=== PATIENT | male | born 2005 | race Caucasian/White ===

== ENCOUNTER 2023-02-20 23:16 | Emergency (ER) | payer OTHER, SELFPAY ==
[2023-02-20] VITALS (7 sets, daily range): BP systolic 121–157; BP diastolic 82–90; PULSE 92–181; RESP 12–18; TEMP 36.6; O2SAT 99–100; BMI 19.6
--- NOTE | 2023-02-20 23:42 | EKG12_ITS ---
Test Reason : tachycardia Blood Pressure : / mmHG Vent. Rate : 148 BPM Atrial Rate : 000 BPM P-R Int : 000 ms QRS Dur : 096 ms QT Int : 286 ms P-R-T Axes : 000 082 015 degrees QTc Int : 449 ms Critical Test Result: High HR Supraventricular tachycardia Incomplete right bundle branch block Borderline ECG Confirmed by MILES GAYLE, ANNA ([id number]), business editor FANNY TUBBS ([id number]) on 02/22/2023 10:53:53 AM Referred By: Tricia Confirmed By:ANNA AQUINO MD
[2023-02-20 23:49] LABS: Absolute Lymphocyte Count 3.54 X10^3/uL (0.83-4.51); Absolute Neutrophil Count 3.2 X10^3/uL (2.0-7.7); Basophil# 0.06 X10^3/uL; Basophil% 0.8 % (0-1); Eosinophil# 0.08 X10^3/uL; Eosinophils% 1.1 % (0-5); Hematocrit 47.5 % (40-54); Hemoglobin 15.7 g/dL (13.0-16.5); Lymphocyte # 3.54 X10^3/ul (0.83-4.51); Lymphocyte % 47.5 % (19-41); Mean Corp Hgb Conc 33.1 g/dL (32-36); Mean Corpuscular Hgb 29.5 pg (27.0-32.0); Mean Corpuscular Volume 89.1 fL (80-94); Mean Platelet Vol. 10.1 fl (6.2-12.0); Monocyte# 0.54 X10^3/uL; Monocyte% 7.2 % (0-10); NRBC Flagged by Analyzer 0 % (0-5); Neutrophil # 3.22 X10^3/uL (2.7-7.7); Neutrophil % 43.3 % (47-70); Platelet Count 206 K/mm3 (150-450); RBC Distribution Width CV 12.4 % (11.6-14.6); RBC Distribution Width SD 40.8 fl (35.1-43.9); Red Blood Count 5.33 M/mm3 (4.6-6.2); White Blood Count 7.5 K/mm3 (4.4-11.0)
[2023-02-21] VITALS (18 sets, daily range): BP systolic 116–129; BP diastolic 65–85; PULSE 91–133; RESP 11–18; O2SAT 96–99
--- NOTE | 2023-02-21 00:07 | EX.ED.DYSGE1 ---
HPI History of Present Illness Chief Complaint: Palpitations Informant: patient Narrative Narrative: Patient is a 17-year-old male with history of SVT presenting with palpitations. Patient states about 5 minutes prior to arrival he felt his heart racing. He notes that he had episode of SVT about 2 years ago [place] is from. He is currently a [employer] student. He notes he was evaluated there and saw 4 different specialist who gave him 4 different answers about it. He does not take any medicine on a daily basis. He does note on his grandmother's side there is been multiple children that have of heart issues which concerned him further. He denies any chest pain does feel like his heart is racing. States he is otherwise been in his normal state of health. Denies any difficulty breathing or leg swelling. Denies any sweating nausea or vomiting. He notes he did drink coffee today which he does not normally drink any caffeine. No other complaints or concerns at this time. PFSH PFSH Medical History no medical history Home Medications hydroxyzine HCl 25 mg tablet 25 mg PO TID PRN palpitations #10 tabs 02/21/23 [Rx Last Taken Unknown] phenobarbital .ROUTE 02/21/23 [History Last Taken Unknown] Allergy/AdvReac Type Severity Reaction Status Date / Time No Known Allergies Allergy Verified 02/20/23 23:19 Social History Smoking Status: Never smoker ROS ROS ED Constitutional Constitutional ED: Denies chills or fever(s) Cardiovascular Cardiovascular: Reports palpitations and racing heartbeat; Denies chest pain Respiratory/Chest Respiratory/Chest: Denies cough or dyspnea Gastrointestinal Gastrointestinal: Denies nausea or vomiting Integumentary Denies rash Neurologic Neurologic: Denies headache(s) EXAM Physical Exam Const Vital Signs: 02/20/23 23:17 02/20/23 23:21 02/20/23 23:22 Temperature 97.9 F Temperature Source Temporal Pulse Rate 181 H 159 H Respiratory Rate 18 Respiratory Effort Normal Non-Labored Blood Pressure 121/90 H Blood Pressure Mean 100 Pulse Ox 99 Oxygen Delivery Method Room Air 02/21/23 00:19 02/20/23 23:23 02/20/23 23:30 Temperature Temperature Source Pulse Rate 105 H 155 H 92 Respiratory Rate 15 15 14 Respiratory Effort Blood Pressure 126/76 H 157/85 H 136/87 H Blood Pressure Mean 92 103 102 Pulse Ox 98 99 Oxygen Delivery Method Room Air 02/20/23 23:40 02/20/23 23:45 02/20/23 23:50 Temperature Temperature Source Pulse Rate 97 115 H 100 Respiratory Rate 12 16 13 Respiratory Effort Blood Pressure 128/82 H Blood Pressure Mean 92 Pulse Ox 100 99 100 Oxygen Delivery Method 02/21/23 00:00 02/21/23 00:16 02/21/23 00:20 Temperature Temperature Source Pulse Rate 106 H 99 Respiratory Rate 12 12 Respiratory Effort Blood Pressure 126/76 H Blood Pressure Mean 90 Pulse Ox 99 Oxygen Delivery Method 02/21/23 00:30 02/21/23 00:40 02/21/23 00:45 Temperature Temperature Source Pulse Rate 133 H 98 105 H Respiratory Rate 12 14 12 Respiratory Effort Blood Pressure 129/85 H 120/83 H Blood Pressure Mean 98 94 Pulse Ox 99 97 99 Oxygen Delivery Method Room Air 02/21/23 00:50 02/21/23 01:00 02/21/23 01:00 Temperature Temperature Source Pulse Rate 94 106 H Respiratory Rate 15 12 Respiratory Effort Blood Pressure 116/81 H Blood Pressure Mean 92 Pulse Ox 99 97 Oxygen Delivery Method Room Air 02/21/23 01:10 02/21/23 01:15 02/21/23 01:20 Temperature Temperature Source Pulse Rate 93 98 92 Respiratory Rate 11 L 16 13 Respiratory Effort Blood Pressure 119/79 Blood Pressure Mean 92 Pulse Ox 96 96 97 Oxygen Delivery Method 02/21/23 01:32 02/21/23 01:40 02/21/23 01:45 Temperature Temperature Source Pulse Rate 103 H 98 102 H Respiratory Rate 12 13 11 L Respiratory Effort Blood Pressure 121/76 H Blood Pressure Mean 88 Pulse Ox 99 98 99 Oxygen Delivery Method Room Air 02/21/23 01:50 02/21/23 02:00 02/21/23 02:55 Temperature Temperature Source Pulse Rate 99 91 Respiratory Rate 14 18 Respiratory Effort Blood Pressure 125/81 H 123/65 H Blood Pressure Mean 93 84 Pulse Ox 97 Oxygen Delivery Method Positive well nourished and well developed General Appearance ED: well developed and NAD HEENT Reports moist mucous membranes Eyes PERRL Neck supple Chest Wall inspection of chest normal and palpation of chest normal Resp normal respiratory effort and clear to auscultation bilaterally Cardio regular rhythm and no murmurs Rate: tachycardic GI normal to inspection, nondistended, normoactive bowel sounds and non-tender Extremity normal to inspection General Extremety ED: Negative for edema General Extremity: Negative for edema Neuro oriented x3 Sensorium / Orientation: alert Motor Exam: Negative for general weakness Psych mental status grossly normal Skin no rashes or lesions noted and no wounds MDM MDM MDM Narrative Medical decision making narrative: Patient is via for palpitations. He presents in SVT. Evaluated immediately upon bedside. He is hemodynamically stable and walks into the emergency room. Patient converted spontaneously when talking with him. He did not report any chest pain, shortness of breath and only had palpitations. He does report a history of SVT 2 years ago. [place] He is interested in getting a second opinion because of family history of questionable cardiac history/cardiac deaths. Repeat EKG after conversion is normal sinus rhythm. He has no findings consistent with Brugada, WPW, HOCM or QT prolongation. His work-up including CBC, BMP, magnesium and TSH are largely normal. His potassium is mildly low at 3.2 and he is given a one-time dose of oral potassium replacement. Counseled to increase his potassium in his diet however I do not think this is the cause of his SVT today. He does report having coffee today which is new for him. Is possible that this could have triggered it. Counseled to stay away from stimulants including caffeine. Is given outpatient referral for cardiology per his request. Given that his first episode in 2 years I do not think he needs to be started on a beta-marley at this time especially at his young age. He is counseled on vagal maneuvers as well as return precautions. He had been prescribed phenobarbital to take as needed when he had symptoms Edita, does not have that here. Will prescribe him a prescription for hydroxyzine. Patient verbalizes agreement understands plan. Discharged home in stable and improved condition Lab Data Attestation: I reviewed the patient's lab results. Labs: Laboratory Results - last 24 hr 02/20/23 23:35 WBC 7.5 RBC 5.33 Hgb 15.7 Hct 47.5 MCV 89.1 MCH 29.5 MCHC 33.1 RDW Std Deviation 40.8 RDW Coeff of Travis 12.4 Plt Count 206 MPV 10.1 Immature Gran % (Auto) 0.100 Neut % (Auto) 43.3 L Lymph % (Auto) 47.5 H [place] % (Auto) 7.2 Eos % (Auto) 1.1 Baso % (Auto) 0.8 Absolute Neuts (auto) 3.2 Absolute Lymphs (auto) 3.54 Nucleated RBC % 0 Sodium 139 Potassium 3.2 L Chloride 105 Carbon Dioxide 26.0 Anion Gap 8 BUN 20 H Creatinine 1.27 Estim Creat Clear Calc 91.84 Est GFR (MDRD) Af Amer 93 Est GFR (MDRD) Non-Af 77 BUN/Creatinine Ratio 15.7 Glucose 105 Calcium 9.2 Magnesium 2.2 TSH 3.28 Radiography Diagnostic Testing: This x-ray considered however he has clear breath sounds no hypoxia or increased work of breathing so do not think indicated at this time Rhythm Strip Rhythm Strip: SVT Rate: 148 Ectopy: None EKG Initial EKG: Attestation: I personally reviewed and interpreted this EKG as follows: Interpretation: SVT Comments: VT at a rate of 148 bpm Normal axis Incomplete right bundle jennifer block Normal ST segments Prior EKG tracings: not available for review Prior: No Prior Follow-up EKG: Attestation: I personally reviewed and interpreted this EKG as follows: Interpretation: Sinus Rhythm Comments: Normal sinus rhythm and rate of 98 bpm Normal axis Normal intervals Normal ST segments Compared to prior EKG patient no longer has an incomplete right bundle branch block and his SVT has resolved Differential Diagnosis Chest pain/SOB: pneumothorax Reason(s) pneumothorax less likely: Positive for bilateral breath sounds, pneumonia Reason(s) pneumonia less likely: Positive for no elevation in WBC count, no noted fever and symptoms not consistent with acute infection and aortic dissection Reason(s) Aortic dissection less likely:: Positive for normal vascular exam, normal neurological exam, no ripping/tearing pain, no pain to back and blood pressure appropriate in ED Discharge Plan Triage Chief Complaint: Palpitations ED Provider: Dennise Clarke Dx/Rx/DC Orders Clinical Impression: SVT (supraventricular tachycardia), Hypokalemia Instructions: ED Understanding Supraventricular Tachycardia (SVT) Prescriptions: New hydroxyzine HCl 25 mg tablet 25 mg PO TID PRN (Reason: palpitations) Qty: 10 0RF No Action phenobarbital .ROUTE Primary Care Provider: Subhash Momin Referrals: Sg Herrera MD [Med Staff - Active Staff] - As soon as possible NOT,DEFINED [Non-Staff] - Activity Restrictions/Additional Instructions: Your heart work-up was very normal today. When you came in you were in a rhythm called SVT. This resolved on its own while in the emergency room. Your work-up otherwise was normal however your potassium was mildly low which is why you were given a one-time potassium supplement. At home please try to increase potassium rich foods such as bananas or sweet potatoes in your diet. Do not think it is related to your SVT today. You have been prescribed an anxiety medicine (hydroxyzine) to take in place of the phenobarbital if you have another episode of SVT. I do not think we need to start you on any heart medicines especially as this is your first episode in 2 years. Please avoid caffeine or other stimulants as this can increase the risk of having SVT. Please follow-up with cardiology as we discussed. Return to the ER if you have a progression of your symptoms or further concerns. You do have another episode try to do the vagal maneuvers we discussed (bearing down, blowing out, laying down and putting you feet up) to get the SVT to stop. Disposition Disposition: Home, Self Care Discharge Date/Time: 02/21/23 02:55
[2023-02-21 00:13] LABS: Anion Gap 8 (5-15); BUN 20 mg/dL (7-18); BUN/Creat Ratio 15.7 RATIO (10-20); Calcium,Total 9.2 mg/dL (8.5-10.1); Chloride 105 mmol/L (98-107); Creatinine, Serum 1.27 mg/dL (0.70-1.30); EST Glomerular Filtration Rate 77 mL/min (>60); Est Glom Filt Rate - Afr Amer 93 mL/min (>60); Estimated Creatinine Clearance 91.84 ml/min; Glucose 105 mg/dL (74-106); Magnesium 2.2 mg/dL (1.6-2.6); Potassium 3.2 mmol/L (3.5-5.1); Sodium Level 139 mmol/L (136-145); Thyroid Stim Hormone (TSH) 3.28 uIU/mL (0.358-3.74)
--- NOTE | 2023-02-21 00:14 | EKG12_ITS ---
Test Reason : tachycardia Blood Pressure : / mmHG Vent. Rate : 098 BPM Atrial Rate : 098 BPM P-R Int : 182 ms QRS Dur : 088 ms QT Int : 320 ms P-R-T Axes : 067 083 051 degrees QTc Int : 408 ms Normal sinus rhythm Normal ECG Confirmed by MILES GAYLE, ANNA ([id number]), senior editor FANNY TUBBS ([id number]) on 02/22/2023 10:54:17 AM Referred By: Tricia Confirmed By:ANNA AQUINO MD
[2023-02-21] MEDS: Potassium Chloride Oral Tablet 20 MEQ PO (02:54)
== END 2023-02-21 02:55 | disposition home or self-care (01) ==
PROVIDERS: Emergency Provider Emergency Medicine; PCP Family Medicine; Visit Provider Emergency Medicine
DX: I47.10 Supraventricular tachycardia, unspecified (principal); E87.6 Hypokalemia
CPT/HCPCS: 80048; 83735; 84443; 85025; 93005; 99284; A4216

== ENCOUNTER → 2023-02-28 | Outpatient (CLI) | payer OTHER, SELFPAY | END | disposition home or self-care (01) | LOC: LAB 11:15 | PROVIDERS: Nurse Practitioner Family; PCP Family Medicine; Referring Provider Internal Medicine Cardiovascular Disease; Visit Provider Internal Medicine Cardiovascular Disease | DX: E87.6 Hypokalemia (principal); I47.10 Supraventricular tachycardia, unspecified | CPT/HCPCS: 36415; 84132 ==

== ENCOUNTER 2023-04-27 10:39 | Outpatient (CLI) | payer OTHER, SELFPAY ==
--- NOTE | 2023-04-27 10:42 | ECHOD_ITS ---
Reason For Study: EKG Procedure This was a 2D Doppler, Color Flow transthoracic echocardiogram. Exam performed in department. Left Ventricle Normal LV size. The estimated ejection fraction is 55 %. No evidence for diastolic dysfunction. No regional wall motion abnormalities noted. Right Ventricle Normal RV size. Normal systolic function. Atria Normal left atrium. Normal right atrium. No doppler evidence for ASD. Mitral Valve There is no mitral valve stenosis. No mitral valve insufficiency. Tricuspid Valve There is no tricuspid stenosis. No tricuspid valve insufficiency. Unable to estimate RV systolic pressure due to inadequate jet, pulmonary artery pressure probably normal. Aortic Valve Trisinus/trileaflet aortic valve. There is no aortic stenosis. No aortic valve insufficiency. Pulmonic Valve There is no pulmonic valvular stenosis. No pulmonic valve insufficiency. Great Vessels Normal aortic root. Pericardium/Pleural No pericardial effusion. MMode/2D Measurements & Calculations LVIDd: 4.7 cm IVSd: 0.80 cm Ao root diam: 2.5 cm LVIDs: 3.4 cm LVPWd: 0.85 cm RVDd: 3.2 cm FS: 28.5 % LAV(MOD-bp): 42.4 ml LVAd ap4: 30.1 cm2 SV(MOD-sp4): 53.1 ml LAV(MOD-bp) Indexed: 29.8 ml/m2 LVLd ap4: 8.0 cm LAV(MOD-sp2): 38.3 ml EDV(MOD-sp4): 95.1 ml LAV(MOD-sp4): 42.3 ml EDV(sp4-el): 96.1 ml LVAs ap4: 17.5 cm2 LVLs ap4: 6.1 cm ESV(MOD-sp4): 42.0 ml ESV(sp4-el): 42.6 ml EF(MOD-sp4): 55.9 % EF(sp4-el): 55.7 % SV(sp4-el): 53.5 ml LA A4 area: 15.9 cm2 LA dimension(2D): 2.9 cm RA A4 area: 12.6 cm2 TAPSE: 2.2 cm Time Measurements MV dec time: 0.16 sec Doppler Measurements & Calculations MV E max dewayne: 91.7 cm/sec Lat Peak E' Dewayne: 21.4 cm/sec Med Peak E' Dewayne: 15.5 cm/sec MV A max dewayne: 59.8 cm/sec E/E' lat: 4.3 E/E' med: 5.9 MV E/A: 1.5 MV V2 max: 112.9 cm/sec Ao V2 max: 89.3 cm/sec MV max P.1 mmHg MV dec slope: 587.4 cm/sec2 Ao max P.2 mmHg MV V2 mean: 67.8 cm/sec Ao V2 mean: 62.6 cm/sec MV mean P.1 mmHg Ao mean P.8 mmHg MV V2 VTI: 29.8 cm Ao V2 VTI: 19.3 cm AV (velocity ratio): 0.98 LV V1 max: 92.1 cm/sec PA V2 max: 105.7 cm/sec LV V1 max P.4 mmHg PA V2 mean: 74.6 cm/sec LV V1 mean P.8 mmHg LV V1 mean: 62.8 cm/sec LV V1 VTI: 18.9 cm ECHO/Echo Complete Interpretation Summary The estimated ejection fraction is 55 %. No evidence for diastolic dysfunction. Ordering Physician: Yuli Nix Referring Physician: Yuli Nix Performed By: Felicity Sanderson RCS
--- NOTE | 2023-04-30 16:37 | STRESSREP ---
Stress Test Report Date: 04/27/2023 Procedure: Exercise tolerance test Indications: SVT Consent: Per the patient Procedure: The patient exercised on a Jeremias protocol for 12 minutes achieving a peak heart rate of 187 bpm (93% predicted maximal heart rate) with a peak blood pressure 146/64 mmHg and a peak MET capacity of approximately 13.7 MET's. The baseline ECG demonstrated normal sinus rhythm. The peak exercise ECG demonstrated no significant ischemic changes. [There were no cardiac dysrhythmias pretest, during exercise, or recovery]. The functional capacity was considered normal for age. The patient had no complaint of chest discomfort during exercise or recovery. The examination was discontinued secondary to achieving target heart rate. Impression: 1. Technically adequate (percent predicted maximal heart rate greater than 85%) exercise tolerance test 2. Stress test is negative for exercise-induced chest pain. 3. Stress test test is negative for exercise-induced EKG changes of ischemia. 4. Functional capacity is normal for age This note was generated with [employer] software. It may contain incorrect words, spelling, and punctuation that were not noted in checking the note before signing.
== END 2023-04-27 23:59 | disposition home or self-care (01) ==
PROVIDERS: PCP Family Medicine; Referring Provider Internal Medicine Cardiovascular Disease; Visit Provider Internal Medicine Cardiovascular Disease
DX: I47.10 Supraventricular tachycardia, unspecified (principal); E87.6 Hypokalemia
CPT/HCPCS: 93017; 93306